=== PATIENT | male | born 1995 | race Caucasian/White ===

== ENCOUNTER 2017-10-10 10:58 | Emergency (ER) | payer OTHER ==
[2017-10-10] MEDS ORDERED: Alum-Mag Hydrox-Simethicone Susp (30 mL) PO STA (14:43)
[2017-10-10 14:46] VITALS: BP 139/88; TEMP 98.9; O2SAT 98
[2017-10-10] MEDS ORDERED: Alum-Mag Hydrox-Simethicone Susp (30 mL) ONE (15:02)
--- NOTE | 2017-10-10 15:34 | C.PDOC ---
History Of Present Illness 22 year old male presents to ED with complaints of nausea, vomiting, and GERD symptoms x2 days and has no past medical history. Notes that he had late-night take out Devin night into the next morning. Notes a difficulty tolerating PO intake due to nausea since consuming take out food. Time Seen by Provider: 10/10/17 13:35 Chief Complaint (Nursing): GI Problem History/Exam Limitations: no limitations Onset/Duration Of Symptoms: Days (x2) Current Symptoms Are (Timing): Still Present Context: Food Associated Symptoms: Nausea, Vomiting, Loss Of Appetite Past Medical History Reviewed: Historical Data, Nursing Documentation, Vital Signs Vital Signs: Last Vital Signs Temp 98.9 F 10/10/17 14:46 Pulse 113 H 10/10/17 15:20 Resp 17 10/10/17 15:20 BP 139/88 10/10/17 14:46 Pulse Ox 98 10/11/17 01:41 - Medical History PMH: No Chronic Diseases Family History: States: No Known Family Hx - Social History Hx Alcohol Use: No Hx Substance Use: No - Immunization History Hx Tetanus Toxoid Vaccination: No Hx Influenza Vaccination: No Hx Pneumococcal Vaccination: No Review Of Systems Except As Marked, All Systems Reviewed And Found Negative. Gastrointestinal: Positive for: Nausea, Vomiting, Other ((+) GERD symptoms) Physical Exam - Physical Exam Appears: No Acute Distress Skin: Normal Color Eye(s): bilateral: Normal Inspection, PERRL, EOMI Oral Mucosa: Dry Tongue: Normal Appearing Lips: Other (Dry) Teeth: Normal Dentition Throat: Normal Gastrointestinal/Abdominal: Normal Exam (Benign), Soft, No Tenderness Neurological/Psych: Oriented x3, Normal Motor, Normal Sensation ED Course And Treatment O2 Sat by Pulse Oximetry: 98 (RA) Pulse Ox Interpretation: Normal Progress Note: zofran, pepcid, maalox PO. tolerated PO challenge well Reevaluation Time: 15:33 Reassessment Condition: Improved Medical Decision Making Medical Decision Making: probably food-born intox as s/s began AM after a 2AM high-risk road food belly benign tolerating PO well. Disposition Doctor Will See Patient In The: Office Counseled Patient/Family Regarding: Studies Performed, Diagnosis - Disposition Referrals: Frank Overton PA [Advanced Practice Nurse] - Disposition: HOME/ ROUTINE Disposition Time: 15:34 Condition: GOOD Additional Instructions: Zofran 4 mg ODT (se desuelva en la boca) en ellen de nausea/vomitos fred cada 6 horas yuki necessario Pepcid 20 mg en la noche y la manana x 3 becerra (9AM y 9PM) Maalox 30 cc (ramses cucharada) cada 3-4 horas yuki necessario- para el reflujo acidez. Dieta blanda fred muchos liquidos por 2 becerra. Sigue con manley medico yuki necessario. Prescriptions: Ondansetron ODT [Zofran ODT] 4 mg PO Q6H PRN #6 odt PRN Reason: Nausea/Vomiting Instructions: Acute Nausea and Vomiting (ED) Forms: [facility] (Czech) Print Language: GREENLANDIC - Clinical Impression Clinical Impression: Nausea & vomiting
[2017-10-10 15:36] VITALS: PULSE 113; RESP 17
== END 2017-10-10 15:51 | disposition home or self-care (01) ==
LOC: C.ER 10:58
DX: R11.2 Nausea with vomiting, unspecified (principal); K21.9 Gastro-esophageal reflux disease without esophagitis